=== PATIENT | female | born 1975 | race Asian ===

== ENCOUNTER 2017-09-09 03:29 | Emergency (ER) | payer BC ==
[~2017-09-09] VITALS: Ht 170.2 cm; Wt 45.4 kg
[2017-09-09 03:39] VITALS: Ht 170.2 cm; Wt 45.4 kg
[2017-09-09 04:27] LABS: CALCIUM 7.5 mg/dL (8.5-10.1); CARBON DIOXIDE 22.8 mmol/L (21-32); CHLORIDE SERUM 110 mmol/L (98-107); CREATININE SERUM 0.5 mg/dL (0.6-1.0); GFR1 > 60 mL/min; GLUCOSE SERUM 150 mg/dL (74-106); POTASSIUM SERUM 4.4 mmol/L (3.5-5.1); SODIUM SERUM 145 mmol/L (136-145)
[2017-09-09 04:33] LABS: ALBUMIN 3.3 g/dL (3.4-5.0); ALKALINE PHOSPHATASE 67 U/L (46-116); ALT/SGPT 157 U/L (14-59); AST/SGOT 449 U/L (15-37); BILIRUBIN TOTAL 0.8 mg/dL (0.20-1.00); LIPASE 132 IU/L (73-393); TOTAL PROTEIN, SERUM 6.6 g/dL (6.4-8.2)
[2017-09-09 05:22] VITALS: BP 120/60
== END 2017-09-09 05:22 | disposition home or self-care (01) ==
LOC: ED 03:29
PROVIDERS: Emergency Medicine
DX: F10.129 Alcohol abuse with intoxication, unspecified (principal); R10.10 Upper abdominal pain, unspecified; R11.2 Nausea with vomiting, unspecified
CPT/HCPCS: J2405; J7030